=== PATIENT | male | born 1990 | race Caucasian/White ===

== ENCOUNTER 2016-10-08 06:04 | Emergency (ER) | payer MEDICAID ==
[~2016-10-08] VITALS: Ht 195.6 cm; Wt 89.9 kg
[2016-10-08 06:06] VITALS: BP 141/82
== END 2016-10-08 07:10 | disposition home or self-care (01) ==
LOC: ED 07:03
DX: K02.9 Dental caries, unspecified (principal); F15.10 Other stimulant abuse, uncomplicated; F17.210 Nicotine dependence, cigarettes, uncomplicated; F12.10 Cannabis abuse, uncomplicated
CPT/HCPCS: 99283